=== PATIENT | male | born 1940 | race Caucasian/White ===

== ENCOUNTER 2016-09-29 17:17 | Emergency (ER) | payer OTHER ==
[2016-09-29] MEDS ORDERED: Ondansetron HCl/PF 4 MG/2 ML Vial ONE (17:50)
[2016-09-29 18:02] LABS: #Basophils 0.1 thou/uL (0.0-0.2); #Eosinphils 0.4 thou/uL (0.0-0.7); #Lymphocytes 2.5 thou/uL (1.20-3.40); #Monocytes 0.8 thou/uL (0.11-0.59); #Neutrophils 13.3 thou/uL (1.40-6.50); %Basophils 0.6 % (0.0-1.0); %Eosinophils 2.5 % (0.0-10.0); %Lymphocytes 14.5 % (21.0-51.0); %Monocytes 4.9 % (0.0-10.0); %Neutrophils 77.5 % (42.0-75.0); Mean Corpuscular HGB CONC 31.3 g/dL (32.0-36.0); Mean Corpuscular Hemoglobin 27.2 pg (27.0-31.0); Mean Corpuscular Volume 86.8 fl (80.0-94.0); Platelet Count 442 thou/uL (130-400); RBC Distribution Width 13.4 % (11.5-14.5); Red Blood Cell (RBC) Count 5.53 mill/uL (4.70-6.10); White Blood Cell (WBC) Count 17.2 thou/uL (4.8-10.8)
[2016-09-29] MEDS ORDERED: Famotidine 20 MG TAB ONE (18:08)
[2016-09-29] MEDS ORDERED: Famotidine In NaCl 20 mg/50 ml Premix Bag ONE (18:09)
[2016-09-29 18:18] LABS: ALT (SGPT) 17 U/L (8-55); AST (SGOT) 19 U/L (5-34); Albumin 3.5 g/dL (3.4-4.8); Alkaline Phosphatase 103 U/L (40-150); Anion Gap 15 mmol/L (10-20); BUN (Urea Nitrogen) 19 mg/dL (8.4-25.7); Bilirubin, Total 0.9 mg/dL (0.2-1.2); CKMB 0.9 ng/mL (0-6.6); Calc. Creatinine Clearance 0 mL/min (70-130); Chloride 83 mmol/L (98-107); Estimated GFR-MDRD 40; Globulin 3.9 g/dL (2.4-3.5); Glucose 120 mg/dL (83-110); Lipase 13 U/L (8-78); Potassium 3.2 mmol/L (3.5-5.1); Protein, Total 7.4 g/dL (5.8-8.1); Sodium 141 mmol/L (136-145); Troponin I Less than 0.010 ng/mL (< 0.028)
[2016-09-29 18:22] LABS: Calcium 12.6 mg/dL (7.8-10.44); Carbon Dioxide 45 mmol/L (23-31)
[2016-09-29] MEDS ORDERED: Oxymetazoline HCl 0.05% ( 15 ML ) ONE (18:55)
--- NOTE | 2016-09-29 21:44 | RAD ---
PORTABLE CHEST 09/29/16 An AP portable film at 1749 is compared with a 08/09/14 study. The heart is normal in size. No lobar infiltrate or effusion was seen. A little streaking in the rig ht base medially is probably due to a confluence of shadows, but perhaps a little atelectasis. There are no large effusions. IMPRESSION: No definite acute finding. POS: HOME
--- NOTE | 2016-09-29 22:38 | CT ---
CT ABDOMEN AND PELVIS WITHOUT CONTRAST 09/29/[address] of the abdomen and pelvis was performed for evaluation of abdominal pain with nausea and v omiting. The lung bases are clear. The hiatal hernia is present. The patient has had prior gastric bypass john gita. Today, there is dilation of the stomach with a large amount of fluid in it. This suggests at l east a partial gastric outlet obstruction. There is fluid throughout the small bowel, but none of it is distended. The patient does have a small umbilical hernia. At one juncture, one can seen fat pro truding through the hernia but at another there is a small loop of bowel that herniates into the sof t tissues of the anterior abdominal wall. Even though the neck is relatively small, the bowel loops leading to and from this area are normal in size indicating no current obstruction here. The lung bases are clear. The liver, spleen, pancreas, adrenal glands, kidneys, and abdominal aorta all showed no acute changes within the limitations of a noncontrast study. Arteriosclerotic change i s seen in the aorta. There is no aneurysm. 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 Particularly at L3-L4 on the left and L4-L5 there is evidence of central canal stenosis or lateral recess stenosis. CT of the pelvis shows prostatic enlargement. No pelvic mass was evident. No free fluid or inflammat ory change was seen. Sigmoid diverticulosis without diverticulitis was indicated. IMPRESSION: 1. Enlarged fluid filled stomach suggestive of a partial gastric outlet obstruction. 2. Small hiatal hernia. 3. Small umbilical hernia with bowel protruding into it but no sign of obstruction. 4. Prostatic enlargement. 5. 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 POS: HOME
== END 2016-09-29 19:20 | disposition short-term general hospital (02) ==
LOC: BURERS 17:17
DX: K31.1 Adult hypertrophic pyloric stenosis (principal); E83.52 Hypercalcemia; E87.6 Hypokalemia; I25.2 Old myocardial infarction; E78.5 Hyperlipidemia, unspecified; K21.9 Gastro-esophageal reflux disease without esophagitis; Z79.899 Other long term (current) drug therapy
CPT/HCPCS: 71010; 74176; 80053; 82553; 83605; 83690; 84484; 85025; 93005; 94760; 96365; 96375; J2405

== ENCOUNTER 2020-09-21 08:04 | Emergency (ER) | payer OTHER ==
[2020-09-21] MEDS ORDERED: Pantoprazole 40 MG VIAL ONE ×2 (08:50→09:04)
[2020-09-21 09:00] LABS: #Basophils 0.1 thou/uL (0.0-0.2); #Eosinphils 0.3 thou/uL (0.0-0.7); #Lymphocytes 1.6 thou/uL (1.20-3.40); #Monocytes 0.7 thou/uL (0.11-0.59); #Neutrophils 12.3 thou/uL (1.40-6.50); %Basophils 0.6 % (0.0-1.0); %Eosinophils 1.9 % (0.0-10.0); %Lymphocytes 10.5 % (21.0-51.0); %Monocytes 4.9 % (0.0-10.0); %Neutrophils 82.2 % (42.0-75.0); Hemoglobin 12.6 g/dL (14.0-18.0); Mean Corpuscular HGB CONC 33.1 g/dL (32.0-36.0); Mean Corpuscular Hemoglobin 29.1 pg (27.0-31.0); Mean Platelet Volume 8.1 fL (7.4-10.4); Platelet Count 324 thou/uL (130-400); RBC Distribution Width 12.8 % (11.5-14.5); Red Blood Cell (RBC) Count 4.33 mill/uL (4.70-6.10)
[2020-09-21 09:03] LABS: Prothrombin Time 13.5 sec (12.0-14.7)
[2020-09-21] MEDS ORDERED: cefTRIAXone\\ROCEPHIN 2 GM VIAL ONE (09:13)
[2020-09-21] MEDS ORDERED: Sodium Chloride 0.9% 100 ML ONE (09:14)
[2020-09-21 09:48] LABS: ALT (SGPT) 11 U/L (8-55); AST (SGOT) 13 U/L (5-34); Albumin 3.3 g/dL (3.4-4.8); Alkaline Phosphatase 71 U/L (40-110); BUN (Urea Nitrogen) 48 mg/dL (8.4-25.7); Bilirubin, Total 0.4 mg/dL (0.2-1.2); Calc. Creatinine Clearance 0 mL/min (70-130); Calcium 8.3 mg/dL (7.8-10.44); Carbon Dioxide 27 mmol/L (23-31); Chloride 77 mmol/L (98-107); Glucose 123 mg/dL (83-110); Protein, Total 5.3 g/dL (5.8-8.1)
[2020-09-21 10:04] LABS: Bilirubin Negative (Negative); Blood, Urine Negative (Negative); Clarity Clear (Clear); Glucose, Urine (Dipstick) Negative (Negative); Ketone, Urine Negative (Negative); Leukocyte Negative (Negative); Nitrite Negative (Negative); Protein, Urine (Dipstick) Negative (Neg-Trace); Specific Gravity, Urine 1.015 (1.005-1.030); Urobilinogen 0.2 mg/dL (Less than 2)
[2020-09-21 10:34] LABS: Anion Gap 13 mmol/L (10-20)
[2020-09-21 10:50] LABS: BUN (Urea Nitrogen) 44 mg/dL (8.4-25.7); Calc. Creatinine Clearance 0 mL/min (70-130); Calcium 7.4 mg/dL (7.8-10.44); Carbon Dioxide 25 mmol/L (23-31); Chloride 109 mmol/L (98-107); Glucose 94 mg/dL (83-110); Potassium 3.3 mmol/L (3.5-5.1); Sodium 144 mmol/L (136-145)
[2020-09-21 10:52] LABS: Potassium 4.4 mmol/L (3.5-5.1); Sodium 143 mmol/L (136-145)
== END 2020-09-21 10:24 | disposition short-term general hospital (02) ==
LOC: BURERS 08:04
DX: K92.2 Gastrointestinal hemorrhage, unspecified (principal); I25.2 Old myocardial infarction; E78.5 Hyperlipidemia, unspecified; Z79.899 Other long term (current) drug therapy
CPT/HCPCS: 36415; 36430; 71045; 80053; 81003; 82274; 83690; 84484; 85025; 85610; 86850; 86900; 86901; 87040; 87086; 93005; 96365; 96374; 96375; 96376; C9113; J0696; J3490; P9016